=== PATIENT | male | born 1960 | race African-American/Black ===

== ENCOUNTER 2017-01-01 17:41 | Emergency (ER) | payer OTHER ==
[~2017-01-01] VITALS: Ht 193 cm; Wt 194.6 kg
[~2017-01-01 17:41] MED LIST: HYDR25TA5 PO; METF1000 PO; OXYC30TA PO; POTA10TA8 PO; PRAV20TA2 PO
[2017-01-01 17:42] VITALS: BP 158/84; PULSE 98; RESP 24; TEMP 98.8; O2SAT 98
== END 2017-01-01 19:52 | disposition left against medical advice (07) ==
LOC: NED 17:41
DX: M79.89 Other specified soft tissue disorders (principal)
CPT/HCPCS: 99281